=== PATIENT | female | born 1945 | race Hispanic/Latino ===

== ENCOUNTER 2022-07-08 07:00 | Outpatient (RCR) | payer MEDICARE ==
[~2022-07-08 07:00] MED LIST: BESIVANCE OP; BREO INH; LEVOCETIRIZINE D5 MG PO; NEVANAC3 ML OP; OMEPRAZOLE20 M1 PO; PROAIR HFA INH8.5 GM INH; XANAX0.5 MG; ZANTAC 7575 MG; ZANTAC150 MG; ZYRTEC10 MG PO
== END 2022-07-08 23:59 | disposition home or self-care (01) ==
LOC: PT 07:00
PROVIDERS: ATTEND Physician Assistant
DX: M75.51 Bursitis of right shoulder (principal); M19.011 Primary osteoarthritis, right shoulder

== ENCOUNTER 2022-07-21 16:32 | Outpatient (RCR) | payer MEDICARE | END 2022-08-05 | LOC: PT 16:32 | PROVIDERS: ATTEND Physician Assistant | DX: M19.011 Primary osteoarthritis, right shoulder (principal); M19.012 Primary osteoarthritis, left shoulder; M75.51 Bursitis of right shoulder; M75.52 Bursitis of left shoulder; M62.81 Muscle weakness (generalized); M25.511 Pain in right shoulder; M25.512 Pain in left shoulder; M25.611 Stiffness of right shoulder, not elsewhere classified ==

== ENCOUNTER 2022-08-04 14:50 | Outpatient (RCR) | payer MEDICARE | END 2022-08-05 | LOC: PT 14:50 | PROVIDERS: ATTEND Physician Assistant | DX: M19.011 Primary osteoarthritis, right shoulder (principal); M19.012 Primary osteoarthritis, left shoulder; M75.51 Bursitis of right shoulder; M75.52 Bursitis of left shoulder ==

== ENCOUNTER 2022-08-25 14:57 | Outpatient (RCR) | payer MEDICARE | END 2022-09-05 | LOC: PT 14:57 | PROVIDERS: ATTEND Physician Assistant | DX: M19.011 Primary osteoarthritis, right shoulder (principal); M19.012 Primary osteoarthritis, left shoulder; M75.51 Bursitis of right shoulder; M75.52 Bursitis of left shoulder ==